=== PATIENT | male | born 1940 | race Caucasian/White ===

== ENCOUNTER 2017-07-15 14:14 | Outpatient (CLI) | payer MEDICARE ==
[2014-01-21 10:13] VITALS: BP 125/86
[2017-07-15 15:05] LABS: BASOPHILS % 0.4 (0.0-1.5); EOSINOPHILS % 6.7 % (0.0-6.8); MEAN CORPUSCULAR HEMOGLOBIN 30.4 pg (28.0-34.0); MONOCYTES % 5.4 % (0.0-11.0); NEUTROPHILS # 5.1 # k/uL (1.4-7.7)
[2017-07-15 15:43] LABS: eGFR (African) > 60; eGFR (Non-African) > 60
== END 2017-07-15 14:15 ==
LOC: CARD 14:14
PROVIDERS: ATTEND Nurse Practitioner
DX: I25.10 Atherosclerotic heart disease of native coronary artery without angina pectoris (principal); I50.22 Chronic systolic (congestive) heart failure; E78.00 Pure hypercholesterolemia, unspecified
CPT/HCPCS: 36415; 80053; 80061; 84439; 84443; 85025; G0463

== ENCOUNTER 2017-09-19 07:11 | Day surgery (SDC) | payer MEDICARE ==
[2014-01-21 10:13] VITALS: BP 125/86
[2017-09-19] MEDS ORDERED: LACTATED RINGERS 1,000 ML IV.SOLN IV ONE (08:00)
[2017-09-19] MEDS ORDERED: PROPOFOL 200 MG/20 ML VIAL IV ONE (08:00)
[2017-09-19] MEDS ORDERED: SALINE FLUSH 10 ML DISP.SYRIN IVF ONE (08:00)
[2017-09-19] MEDS ORDERED: LIDOCAINE HCL/PF 2% 100 MG/5 ML VIAL IJ ONE (08:00)
--- NOTE | 2017-09-19 14:01 | GI Report ---
GLOBAL IMPLEMENTATION MANAGER: Ethan Colbert MD PROCEDURE MEDICATION: Propofol as per anesthesia. INDICATIONS: This is a 76-year-old man who has had multiple polyps, more than 10 in the past. Some significant adenomatous polyps requiring piecemeal removal. He is referred for a follow up colonoscopy. He denies any interval change in history or symptoms. PROCEDURE PERFORMED: Colonoscopy with polypectomy. PROCEDURE: An Olympus video colonoscope was advanced to the rectum. The prep was really fair to poor. Severe diverticular disease of the sigmoid and descending colon. An atonic redundant colon. It took some maneuvering to get to the cecum. The appendiceal orifice, we had to lavage to clean the stool out to see, and Ileocecal valve were normal. In the cecum and proximal ascending colon next to it, the patient had 3 polyps. Two were sessile and flat which we removed 1 in 2 pieces and 1 in 3 pieces. The other polyp was removed in 1 piece. Ascending colon, again, no obvious lesion, though we had to lavage because of the poor prep. Transverse colon, again, diverticula, atonic and redundant. No additional lesions seen. The descending colon and sigmoid, again, severe diverticular disease. A lot of stool was present that we lavaged around. No obvious intraluminal lesions noted. Retroflexion of the rectum shows hemorrhoids. Patient tolerated the procedure well. FINDINGS: 1. Three polyps removed from the cecum and proximal ascending colon. One was bothersome and removed in 3 pieces. Submitted to pathology. 2. Severe diverticular disease of the colon. 3. Poor prep. RECOMMENDATIONS: 1. With next colonoscopy, he needs to be on a 2 to 3-day prep. 2. Pending the pathology of the polyp, he needs his colon re-looked again within 2 to 3 years. 3. Increase fiber in the diet, such as Benefiber, Metamucil, or Citrucel. 4. He is to follow up with Dr. Miller. cc: Dr. Mayco ALANIS
== END 2017-09-19 07:12 ==
LOC: OPSURG 07:11
PROVIDERS: ATTEND Internal Medicine Gastroenterology
DX: D37.4 Neoplasm of uncertain behavior of colon (principal)
CPT/HCPCS: 88305; J2001; J2704; J7120; 45385; S1016

== ENCOUNTER 2017-10-24 08:13 | Day surgery (SDC) | payer MEDICARE ==
[2014-01-21 10:13] VITALS: BP 125/86
[~2017-10-24 08:13] MED LIST: LACTATED RINGERS 1,000 ML IV.SOLN IV ONE; LIDOCAINE HCL/PF 2% 100 MG/5 ML VIAL IJ ONE; PROPOFOL 200 MG/20 ML VIAL IV ONE; SALINE FLUSH 10 ML DISP.SYRIN IVF ONE
--- NOTE | 2017-10-24 11:58 | GI Report ---
REFERRING PHYSICIAN: Dr. Mayco Miller LOCOMOTIVE INSPECTOR: Ethan Colbert MD PROCEDURE MEDICATION: Propofol as per anesthesia. INDICATIONS: Patient is a 77-year-old man who last year had a polyp in the ascending colon and cecum and it was removed in a couple of pieces and the biopsies came back as high-grade dysplasia and question of invasive carcinoma. It was a poor prep with a lot of stool and I could not see the base real well. He is referred for a repeat evaluation to re-look at this area and see if there is residual or not. He was on a 3-day prep so he got a lens cleaner this time he states. PROCEDURE PERFORMED: Colonoscopy and biopsies. DESCRIPTION OF PROCEDURE: An [employer] video colonoscope was advanced to the rectum. At the sigmoid, he does have large-mouth diverticula. He still had some fecaliths, but we were able to get through that area and advance all the way to the cecum. 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 We took 6 biopsies of it to submit to pathology. The way it is embedded into the wall, even though it is not real big, it has bothersome features for carcinoma. Main part of the ascending colon had redundancy. Transverse colon had redundancy. Descending colon and sigmoid colon with severe diverticular disease. Retroflexion of the rectum was normal. 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 RECOMMENDATIONS: 1. I recommend a referral to a colorectal surgeon. 2 He probably needs his colon re-looked again 1 year after surgery. 3. Continue fiber in his diet. cc: Dr. Mayco ALANIS
== END 2017-10-24 08:14 ==
LOC: OPSURG 08:13
PROVIDERS: ATTEND Internal Medicine Gastroenterology
DX: C18.0 Malignant neoplasm of cecum (principal)
CPT/HCPCS: 45385; 88305; 88341; J2001; J2704; J7120; S1016

== ENCOUNTER 2017-12-08 10:07 | Outpatient (CLI) | payer MEDICARE ==
[2014-01-21 10:13] VITALS: BP 125/86
== END 2017-12-08 10:10 ==
LOC: OUT 10:07
PROVIDERS: ATTEND Colon & Rectal Surgery
DX: Z90.49 Acquired absence of other specified parts of digestive tract (principal)
CPT/HCPCS: G0463

== ENCOUNTER 2018-01-05 08:54 | Outpatient (CLI) | payer MEDICARE ==
[2014-01-21 10:13] VITALS: BP 125/86
== END 2018-01-05 08:55 ==
LOC: OUT 08:54
PROVIDERS: ATTEND Colon & Rectal Surgery
DX: Z90.49 Acquired absence of other specified parts of digestive tract (principal)
CPT/HCPCS: G0463

== ENCOUNTER 2018-09-08 13:48 | Outpatient (CLI) | payer MEDICARE ==
[2014-01-21 10:13] VITALS: BP 125/86
[2018-09-08 14:28] LABS: MEAN CORPUSCULAR HEMOGLOBIN 29.3 pg (28.0-34.0)
[2018-09-08 14:29] LABS: BASOPHILS % 0.4 (0.0-1.5); EOSINOPHILS % 6.4 % (0.0-6.8); NEUTROPHILS # 5.4 # k/uL (1.4-7.7)
[2018-09-08 15:01] LABS: eGFR (Non-African) > 60
== END 2018-09-08 14:00 ==
LOC: LAB 13:48
PROVIDERS: ATTEND Internal Medicine Cardiovascular Disease
DX: E78.00 Pure hypercholesterolemia, unspecified (principal); I25.10 Atherosclerotic heart disease of native coronary artery without angina pectoris; I50.22 Chronic systolic (congestive) heart failure
CPT/HCPCS: 36415; 80053; 80061; 84443; 85025

== ENCOUNTER 2019-09-04 07:48 | Outpatient (CLI) | payer MEDICARE ==
[2014-01-21 10:13] VITALS: BP 125/86
[2019-09-04 08:09] LABS: BASOPHILS % 0.3 % (0.0-1.5); NEUTROPHILS # 4.6 # k/uL (1.4-7.7)
[2019-09-04 09:06] LABS: HDL 36 mg/dL (>40); eGFR (Non-African) > 60
== END 2019-09-04 07:53 ==
LOC: LAB 07:48
PROVIDERS: ATTEND Nurse Practitioner
DX: E78.00 Pure hypercholesterolemia, unspecified (principal); I50.22 Chronic systolic (congestive) heart failure; I25.10 Atherosclerotic heart disease of native coronary artery without angina pectoris
CPT/HCPCS: 36415; 80053; 80061; 84439; 84443; 85025